=== PATIENT | male | born 1995 | race Caucasian/White ===

== ENCOUNTER 2018-06-16 13:18 | Emergency (ER) | payer SELFPAY ==
[2018-06-16 13:19] VITALS: BP 133/77; PULSE 54; RESP 16; TEMP 36.4; O2SAT 95; BMI 24.4
[2018-06-16] MEDS: 0.9% Normal Saline 1,000 ML 125 ML IV (14:37)
[2018-06-16 14:45] LABS: Absolute Lymphocyte Count 2.01 X10^3/ul (0.83-4.51); Absolute Neutrophil Count 4.1 X10^3/uL (2.0-7.7); Basophil# 0.03 X10^3/uL; Basophil% 0.4 % (0-1); Eosinophil# 0.23 X10^3/uL; Eosinophils% 3.4 % (0-5); Hemoglobin 14.2 g/dl (13.0-16.5); Lymphocyte # 2.01 X10^3/ul (4.0); Mean Corp Hgb Conc 33.8 g/gl (32-36); Mean Corpuscular Hgb 29.5 pg (27.0-32.0); Mean Corpuscular Volume 87.3 fL (80-94); Mean Platelet Vol. 9.6 fl (6.2-12.0); Monocyte% 4.5 % (0-10); Neutrophil # 4.12 X10^3/uL (2.7-7.7); Neutrophil % 61.7 % (47-70); Platelet Count 211 K/mm3 (150-450); RBC Distribution Width CV 13.2 % (11.6-14.6); RBC Distribution Width SD 42.5 fl (35.1-43.9); Red Blood Count 4.81 M/mm3 (4.6-6.2); White Blood Count 6.7 K/mm3 (4.4-11.0)
[2018-06-16 14:46] LABS: POSITIVE COUNT NO; POSITIVE DIFFERENTIAL NO; POSITIVE MORPHOLOGY NO
[2018-06-16 15:06] LABS: AST(SGOT) 16 U/L (15-37); Alanine Aminotransfer ALT/SGPT 18 U/L (16-61); Alkaline Phosphatase 71 U/L (45-117); Anion Gap 8 (5-15); BUN 13 mg/dL (7-18); BUN/Creat Ratio 12.6 RATIO (10-20); Bilirubin, Direct 0.21 mg/dL (0.00-0.30); Calcium,Total 8.7 mg/dL (8.5-10.1); Chloride 105 mmol/L (98-107); Creatinine, Serum 1.03 mg/dL (0.70-1.30); EST Glomerular Filtration Rate 95 mL/min (>60); Est Glom Filt Rate - Afr Amer 115 mL/min (>60); Estimated Creatinine Clearance 122.43 ml/min; Globulin 3.6 g/dL (2.2-4.2); Glucose 81 mg/dL (74-106); Lipase 59 U/L (73-393); Potassium 3.7 mmol/L (3.5-5.1); Protein, Total 7.6 g/dL (6.4-8.2); Sodium Level 139 mmol/L (136-145)
[2018-06-16 15:18] VITALS: RESP 16
[2018-06-16 15:27] LABS: Bacteria 0 SEEN /hpf (None Seen); Mucous, Urine 0 SEEN /hpf (<or=2+); Red Blood Cells-Urine 0 SEEN /hpf (0-5); White Blood Cells 0 SEEN /hpf (0-5)
[2018-06-16 15:37] LABS: Color, Urine Yellow (Yellow); Glucose, Dipstick Normal (Normal); Ketone-Dipstick 15 mg/dl (Negative); Leukocyte Esterase-Dipstick Negative /ul (Negative); Nitrite-Dipstick Negative (Negative); Occult Blood-Urine Negative /ul (Negative); Protein-Dipstick Negative (Negative); Specific Gravity, Urine 1.015 (1.002-1.030); Urine Bilirubin Dipstick Negative (Negative); Urine Clarity Clear (Clear); Urine Urobilinogen Normal (Normal)
[2018-06-16 15:50] LABS: Squamous Epithelial Cells - UA 0-5 SEEN /hpf (0-5)
--- NOTE | 2018-06-16 16:27 | ED.VISSUMM ---
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 yesterday he felt okay when home was able to eat and drink today came to work had a bagel for breakfast and then had intermittent abdominal pain and came down to the emergency department there is been no fever today no vomiting normal bowel bladder habits he denies any significant past medical history, no exposures to sick individual or tainted food that he indicates the pain is in the central abdominal region when it occurs Physical Examination: [] He is in no distress his vital signs are within normal limits head neck chest unremarkable abdomen soft nontender the hearing guarding organomegaly any area again he indicates when he has the pain is in the central abdomen but on examination there is no findings, upper lower extremity skin exam neurologic exam normal Test Results: [] Emergency Department Course and Treatment: [] Differential is rather extensive certainly appendicitis other GI issues are in the differential screening labs are obtained are unremarkable his white counts normal his abdominal CT shows no inflammation or abnormalities in the right lower quadrant appendix not definitively seen and significant signs of constipation otherwise unremarkable CT Explained all the above to him I explained the fact that given he has a normal white count after 2 days of intermittent pain is unremarkable CT that he has been able to eat and drink that appendicitis is very unlikely and that outpatient management is appropriate, he will stay in a bland diet follow-up his family physicians and return for change in symptoms he understands and agrees Treatment Plan: [] Disposition: [] Home stable Impression: [] Abdominal pain etiology unclear This note was generated with [employer] dictation software. It may contain incorrect words, spelling, and punctuation that were not noted in review of the chart prior to signing ED Disposition - Plan for ED Patient: Chief Complaint: Abd Pain Referrals: Care Physician,No Primary [Primary Care Provider] -
--- NOTE | 2018-06-16 16:34 | ED.DEP ---
ED Disposition - Plan for ED Patient: Chief Complaint: Abd Pain Instructions: ED Abdominal Pain Unkn Cause, ED Abdominal Pain Appendx Poss Referrals: Care Physician,No Primary [Primary Care Provider] - Ariel Mcintosh MD [STAFF PHYSICIAN] -
[2018-06-16 16:52] VITALS: BP 137/68; PULSE 57; RESP 14; O2SAT 97
== END 2018-06-16 16:54 | disposition home or self-care (01) ==
PROVIDERS: Emergency Provider Emergency Medicine
DX: R10.33 Periumbilical pain (principal)
CPT/HCPCS: 74176; 80048; 80076; 81001; 83690; 85025; 96360; 96361; 99283; J7030; A4216; J2405

== ENCOUNTER → 2018-08-07 11:12 | Outpatient (CLI) | payer OTHER, SELFPAY ==
[2018-08-07 11:19] LABS: Bacteria 0 SEEN /hpf (None Seen); Mucous, Urine 0 SEEN /hpf (<or=2+); Red Blood Cells-Urine 0 SEEN /hpf (0-5); Squamous Epithelial Cells - UA 0 SEEN /hpf (0-5); White Blood Cells 0 SEEN /hpf (0-5)
[2018-08-07 11:31] LABS: Color, Urine Yellow (Yellow); Glucose, Dipstick Normal (Normal); Ketone-Dipstick 5 mg/dl (Negative); Leukocyte Esterase-Dipstick 25 /ul (Negative); Nitrite-Dipstick Negative (Negative); Occult Blood-Urine 10 /ul (Negative); Protein-Dipstick 15 mg/dl (Negative); Urine Bilirubin Dipstick Negative (Negative); Urine Clarity Clear (Clear); Urine Urobilinogen Normal (Normal)
[2018-08-07 13:15] LABS: PSA,Total- Diagnostic 1.11 ng/mL (0.0-4.0)
[2018-08-07 16:39] LABS: Chlamydia Trachomatis by PCR Negative (Negative); Neisserai gonorrhoeae by PCR Negative (Negative); Probe Check PASS; Sample Adequacy Control PASS; Specimen Processing Control PASS
== END ==
PROVIDERS: Family Provider Internal Medicine; PCP Internal Medicine; Referring Provider Nurse Practitioner Family; Visit Provider Nurse Practitioner Family
DX: R30.0 Dysuria (principal); R10.9 Unspecified abdominal pain
CPT/HCPCS: 36415; 81001; 84153; 87491; 87591

== ENCOUNTER 2018-09-13 06:56 | Day surgery (SDC) | payer OTHER, SELFPAY ==
[2018-09-13] VITALS (7 sets, daily range): BP systolic 85–123; BP diastolic 52–76; PULSE 42–66; RESP 14–16; TEMP 36.6–37; O2SAT 94–100; BMI 24.6
--- NOTE | 2018-09-13 | GASB_PTH ---
PATIENT: HERIBERTO ROUSE LOC: EN U#:[id number] AGE/SX: 23/M ROOM: RE09/13/[address]: Dr. Da Huggins MD : 1995 BED: DIS: 09/13/2018 SPEC #: [id number] RECD: 09/13/18 10:45 STATUS: ILIR MARY #: [id number] NE: 09/13/18 00:[address]: Da Huggins DEPT: SURGICAL PATHOLOGY RECD BY: Ruben Ferraro ENTERED: 09/13/18 10:45 SP TYPE: Gastric Bx OTHR DR: Dr. Justin Mcdowell MD Tissues: A - Gastric mucous membrane B - COLON BIOPSY Procedures: Surgery Specimen Level IV HEADER OPERATION: Colonoscopy, EGD ([facility]) PRE-OP DIAGNOSIS: Diarrhea, abdomen pain, dysphagia TISSUE SUBMITTED: A - Antral biopsy for histo and H. pylori, B - Random colonic biopsy MICROSCOPIC DIAGNOSIS A. Antral biopsy: Moderate chronic active gastritis. B. Colon, random biopsy: Fragments of colonic mucosa, no pathologic diagnosis. SJ:celestine 09/16/18 COMMENT A. The results of immunohistochemistry for Helicobacter pylori will be reported separately ([id number]). MICROSCOPIC DESCRIPTION Slides are reviewed. GROSS DESCRIPTION A - Received in fixative is one container labeled with the patient's name and designated antral biopsy. The specimen consists of multiple irregular fragments of light gordon soft tissue that in aggregate measure 0.7 x 0.5 x 0.2 cm. The specimen is totally submitted in one cassette. B - Received in fixative is one container labeled with the patient's name and designated random colonic biopsies. The specimen consists of multiple irregular fragments of light gordon soft tissue that in aggregate measure 2 x 0.8 x 0.2 cm. The specimen is totally submitted in one cassette. / RY:celestine 09/13/18 TC:2 CPT: 40492 x2
--- NOTE | 2018-09-13 07:52 | H&P.OPEN ---
History of Present Illness Date of Admission: 09/13/18 The patient is a 23 year old M who was seen in the office and is here for colonoscopy due to his chronic diarrhea and cramping. The patient also has noted that recently he has been having a lot of epigastric pain as well as nausea and vomiting. Past Medical/Surgical History - Planned Operation Planned Operative Procedure/s: CSCOPE/EGD Date of Operative Procedure: 09/13/18 Permit Signed: No S.O.S: No Is This Patient Having a Total Joint: No - Previous Hospitalizations/Surgeries HX Hospitalizations: No HX of Surgeries: TONSILLECTOMY CHILD. 2015 VARCIOCELECTOMY Any Problems With Anesthesia: No You/Your Family Experience Fever (Hyperthermia) With Anes: No Cholinesterase deficiency: No - Cardiovascular Hx Chest Pain within Last 2 months: No Hx of Irregular Heartbeat and/or Afib: No Hx Heart Attack: No Hx Congestive Heart Failure: No Hx Rheumatic Fever: No Hx Hypertension: No Hx Internal Defibrillator: No Hx Pacemaker: No Hx Cardiac Catheterization: No Hx Cardiac Surgery/Stents/Etc.: No Hx Stress Test: No HX Edema: No Hx Pain in Legs when Walking/Leg Cramps: No - Respiratory Chronic Cough: No HX of Shortness of Breath: Yes - SOB WITH 2 FLIGHTS OF STAIRS Hoarseness: No Hx Chronic Obstructive Pulmonary Disease (COPD): No Hx Asthma: No Hx Emphysema: No Hx Sleep Apnea: No Hx Oxygen Use at Home: No Hx Respiratory Tract Infection/Cold (presently): No Do You Snore Loudly (louder than talking or can be heard): No Do You Often Feel Tired/ Fatigued/ Sleepy Dring Daytime?: No Has Anyone Observed You Stop Breathing During Sleep?: No Result (for STOP score): Negative Hx Smoking: Yes - CHEWING TOBACCO Smoking Status: Current every day smoker - Gastrointestinal Hx Gastroesophageal Reflux: Yes Controlled With Meds: No Hx Gastrointestinal Disorders: Yes - IBS,CONSTIPATION Hx Gastrointestinal Bleed: No Hx Ulcer: No Hx Hiatal Hernia: No Difficulty Chewing/Swallowing: Yes - TROUBLES WITH SWALLOWING Recent Onset of Swallowing Problems: No Special diet followed at home: No Hx Unplanned Weight Loss of 20#: No HX Unplanned Weight Gain of 20#: No - Neurological Hx Seizures: No HX Syncope/Blackout Spells/Unconsciousness: Yes - VASOVAGAL Hx CVA/Stroke: No Hx Transient Ischemic Attacks (TIA): No Hx Multiple Sclerosis: No Hx Parkinson's Disease: No Hx Head/Neck Injury: No Hx Headaches: Yes Hx Back Injury/Pain: Yes - SCIATIC NERVE PAIN Recent Onset of Speech Difficulty: No Restless Legs: No Does patient have nerve stimulator: No Patient instructed to have device shut off: No Rep notified?: No - Blood Disorder Hx Leukemia: No Bleeding Tendencies: Yes - EXCESSIVE BLEEDING Hx Deep Vein Thrombosis: No Hx High Cholesterol: No Blood Transmitted Disease: No Hx Hepatitis: No Hx Cirrhosis: No Hx Anemia: No Hx Blood Disorders: No - Genitourinary Hx Renal Disease: No - Musculoskeletal Hx Arthritis: No Hx Rheumatoid Arthritis: No Hx Gout: No Recent Onset of an Orthopedic Problem: No - Endocrine Hx Diabetes: No Thyroid Disease: No Hx Steroid Therapy: No - Psycho/Social Hx Substance Use: No Hx Alcohol Use: Yes - IN THE PAST Hx Anxiety: Yes Hx Depression: No Mental Illness: No Hx Dementia: No - Miscellaneous Hx Cancer: No Recent Exposure to Contagious Disease: No Active MRSA: No Hx of C-Diff: No Any Loose Teeth: No Allergies No Known Allergies Allergy (Verified 09/12/18 15:59) - Discharge Is Pt Admitted From a Senior Care, or a Prison: No Who Could Help: FAMILY After D/C, Where Do you Plan to Go: Return Home - Physical Exam General: Alert, Oriented x3, Cooperative Neck: No JVD Lungs: Normal air movement Cardiovascular: Regular rate, Regular Rhythm Abdomen: Soft, Non Tender, Non-Distended Vital Signs Temp Pulse Resp BP Pulse Ox 98.6 F 53 L 14 123/76 H 97 09/13/18 07:13 09/13/18 07:13 09/13/18 07:13 09/13/18 07:13 09/13/18 07:13 Oxygen Delivery Method Room Air Weight: 181 lb 10.574 oz Body Mass Index (BMI) 24.6 Assessment/Plan All Active Problems (Last Reviewed 08/06/18 @ 15:50 by Akilah Zhou) Abdominal pain (Acute) 23-year-old male for EGD and colonoscopy 1. Given the fact that the patient is having a lot of epigastric pain as well as nausea especially with meals I will add on an EGD as well. 2. I have already expressed the fact that I am doing his colonoscopy but I recommend that he see a GI doctor as his symptoms do not indicate anything surgical. Da Huggins MD Pager: [facility] [address] [place] [address] [address] [place] [address] Office: Surgery Risks - Colonoscopy Risks Include but are not Limited To: Risks include but are not limited to: Bleeding, perforation requiring further surgery, inability to complete colonoscopy requiring barium enema.
--- NOTE | 2018-09-13 08:00 | IMM_PTH ---
PATIENT: HERIBERTO ROUSE LOC: EN U#:[id number] AGE/SX: 23/M ROOM: RE09/13/[address]: Dr. Da Huggins MD : 1995 BED: DIS: 09/13/2018 SPEC #: [id number] RECD: 09/13/18 13:26 STATUS: ILIR MARY #: [id number] NE: 09/13/18 08:[address]: Da Huggins DEPT: IMMUNOHISTOCHEMISTRY RECD BY: Julissa López ENTERED: 09/13/18 13:26 SP TYPE: IMMUNO OTHR DR: Dr. Justin Mcdowell MD Tissues: A - Stomach, NOS Procedures: H Pylori (initial) PHYSICIAN & INSTITUTION [place] [address] SPECIMEN INFORMATION: Tissue Source: A - Antral biopsy Clinical Info: Diarrhea, abdomen pain, dysphagia Specimen Number: [id number] CPT code: 93160 METHODOLOGY: Deparaffinized sections of prefer/formalin-fixed tissue or PAP/DQ stained slides are incubated with monoclonal/polyclonal antibodies/oligonucleotide probes. Localization is made via biotin free immunoperoxidase method. Appropriate controls are performed and reacted as expected. Results on target cell population are indicated in the following table: RESULTS: ANTIBODY / CLONE RESULT Block A H Pylori (polyclonal) positive These tests were developed and their performance characteristics determined by [facility]. They may not have been cleared or approved by the U.S. Food and Drug Administration. The FDA has determined that such clearance or approval is not necessary. INTERPRETATION: A. Antral biopsy: Positive for numerous Helicobacter pylori organisms. SJ:celestine 09/16/18
--- NOTE | 2018-09-13 08:26 | OP.ENDO_ITS ---
Patient Name: Eliot Rivers Procedure Date: 09/13/2018 7:34 AM Date of : 1995 Age: 23 Procedure: Upper GI endoscopy Indications: Epigastric abdominal pain, Suspected gastro-esophageal reflux disease Providers: Da Huggins MD Referring MD: Justin Mcdowell MD Medicines: Monitored Anesthesia Care Patient Profile: This is a 23 year old male. Refer to note in patient chart for documentation of history and physical. Complications: No immediate complications. Estimated blood loss: Minimal. Procedure: Pre-Anesthesia Assessment: - Prior to the procedure, a History and Physical was performed, and patient medications and allergies were reviewed. The patient's tolerance of previous anesthesia was also reviewed. The risks and benefits of the procedure and the sedation options and risks were discussed with the patient. All questions were answered, and informed consent was obtained. Prior Anticoagulants: The patient has taken no previous anticoagulant or antiplatelet agents. After reviewing the risks and benefits, the patient was deemed in satisfactory condition to undergo the procedure. After obtaining informed consent, the endoscope was passed under direct vision. Throughout the procedure, the patient's blood pressure, pulse, and oxygen saturations were monitored continuously. The gastroscope was introduced through the mouth, and advanced to the second part of duodenum. The upper GI endoscopy was accomplished without difficulty. The patient tolerated the procedure well. Scope In: 8:00:10 AM Scope Out: 8:02:40 AM Total Procedure Duration Time 0 hours 2 minutes 30 seconds Findings: The esophagus was normal. The stomach was normal. The examined duodenum was normal. Biopsies were taken with a cold forceps in the gastric antrum for Helicobacter pylori testing. Impression: - Normal esophagus. - Normal stomach. - Normal examined duodenum. - Biopsies were taken with a cold forceps for Helicobacter pylori testing. Recommendation: - Await pathology results. - Resume previous diet. - Continue present medications. - Refer to a examiner rating clerk. - Discharge patient to home. Procedure Code(s): --- Professional --- 92369, Esophagogastroduodenoscopy, flexible, transoral; with biopsy, single or multiple Diagnosis Code(s): --- Professional --- R10.13, Epigastric pain CPT copyright 2017 [employer]. All rights reserved. The codes documented in this report are preliminary and upon regional marketing manager review may be revised to meet current compliance requirements. Da Huggins MD 09/13/2018 8:25:14 AM This report has been signed electronically. Number of Addenda: 0 Note Initiated On: 09/13/2018 7:34 AM
--- NOTE | 2018-09-13 08:27 | OP.ENDO_ITS ---
Patient Name: Eliot Rivers Procedure Date: 09/13/2018 8:04 AM Date of : 1995 Age: 23 Procedure: Colonoscopy Indications: Abdominal pain in the left lower quadrant, Clinically significant diarrhea of unexplained origin Providers: Da Huggins MD Referring MD: Justin Mcdowell MD Medicines: Monitored Anesthesia Care Patient Profile: This is a 23 year old male. Refer to note in patient chart for documentation of history and physical. Last Colonoscopy: none. The patient's first colonoscopy is today. Complications: No immediate complications. Estimated blood loss: Minimal. Procedure: Pre-Anesthesia Assessment: - Prior to the procedure, a History and Physical was performed, and patient medications and allergies were reviewed. The patient's tolerance of previous anesthesia was also reviewed. The risks and benefits of the procedure and the sedation options and risks were discussed with the patient. All questions were answered, and informed consent was obtained. Prior Anticoagulants: The patient has taken no previous anticoagulant or antiplatelet agents. After reviewing the risks and benefits, the patient was deemed in satisfactory condition to undergo the procedure. After I obtained informed consent, the scope was passed under direct vision. Throughout the procedure, the patient's blood pressure, pulse, and oxygen saturations were monitored continuously. The Colonoscope was introduced through the anus and advanced to the cecum, identified by appendiceal orifice and ileocecal valve. The colonoscopy was performed without difficulty. The patient tolerated the procedure well. The quality of the bowel preparation was good. Scope In: 8:05:57 AM Scope Withdrawal Time 0 hours 6 minutes 34 seconds Scope Out: 8:17:23 AM Total Procedure Duration Time 0 hours 11 minutes 26 seconds Findings: The entire examined colon appeared normal on direct and retroflexion views. Biopsies for histology were taken with a cold forceps from the entire colon for evaluation of microscopic colitis. Impression: - The entire examined colon is normal on direct and retroflexion views. - No specimens collected. Recommendation: - Discharge patient to home. - Resume previous diet. - Continue present medications. - Physician's office will call you with pathology results and recommendations for when to repeat colonoscopy. - Refer to a environment coordinator. - Repeat colonoscopy at age 50 for screening purposes. Procedure Code(s): --- Professional --- 05255, Colonoscopy, flexible; with biopsy, single or multiple Diagnosis Code(s): --- Professional --- R10.32, Left lower quadrant pain R19.7, Diarrhea, unspecified CPT copyright 2017 [employer]. All rights reserved. The codes documented in this report are preliminary and upon service architect review may be revised to meet current compliance requirements. Da Huggins MD 09/13/2018 8:27:41 AM This report has been signed electronically. Number of Addenda: 0 Note Initiated On: 09/13/2018 8:04 AM
== END 2018-09-13 09:15 | disposition home or self-care (01) ==
LOC: EN 06:57 → AC 06:58
PROVIDERS: Family Provider Internal Medicine; PCP Internal Medicine; Referring Provider Internal Medicine; Visit Provider Surgery
PROC: 0DJD8ZZ Inspection of Lower Intestinal Tract, Via Natural or Artificial Opening Endoscopic (ICD-10-PCS; CPT 45378; principal; 2018-09-13 07:55)
DX: K29.50 Unspecified chronic gastritis without bleeding (principal); B96.81 Helicobacter pylori [H. pylori] as the cause of diseases classified elsewhere; K58.0 Irritable bowel syndrome with diarrhea; K21.9 Gastro-esophageal reflux disease without esophagitis; F17.200 Nicotine dependence, unspecified, uncomplicated; Z79.899 Other long term (current) drug therapy
CPT/HCPCS: 43239; 45380; 88305; 88342; J7120

== ENCOUNTER 2018-10-14 18:11 | Emergency (ER) | payer OTHER, SELFPAY ==
[2018-09-13 07:13] VITALS: BMI 24.6
[2018-10-14 18:14] VITALS: BP 127/73; PULSE 104; RESP 14; TEMP 36.9; O2SAT 99; BMI 24.8
[2018-10-14 20:32] LABS: Anion Gap 7 (5-15); BUN 11 mg/dL (7-18); BUN/Creat Ratio 11.7 RATIO (10-20); Calcium,Total 9.1 mg/dL (8.5-10.1); Chloride 106 mmol/L (98-107); Creatinine, Serum 0.94 mg/dL (0.70-1.30); EST Glomerular Filtration Rate 105 mL/min (>60); Est Glom Filt Rate - Afr Amer 127 mL/min (>60); Estimated Creatinine Clearance 130.17 ml/min; Glucose 75 mg/dL (74-106); Sodium Level 142 mmol/L (136-145)
--- NOTE | 2018-10-14 20:36 | CT_ITS ---
STUDY: CT ABDOMEN AND PELVIS WITH CONTRAST REASON FOR EXAM: Male, 23 years old. GI bleed RADIATION DOSAGE (If Supplied By Facility): CTDIvol = ( 11.82 ) mGy, DLP = ( 699.50 ) mGycm TECHNIQUE: Transaxial images were obtained from the dome of the diaphragm to the symphysis pubis without oral contrast. 100 ml of Isovue 300 contrast was administered. Sagittal and coronal images were reconstructed. Individualized dose optimization techniques were used for this CT. COMPARISON: June 16, 2018 FINDINGS: The visualized lung bases are unremarkable. The visualized portions of the heart are within normal limits. Normal liver. Normal gallbladder and extrahepatic biliary system. Normal spleen. Normal pancreas. Normal bilateral adrenal glands. Normal right kidney. Possible punctate stone in the left kidney. Normal visualized stomach. Normal small intestine. Normal colon. The appendix is visualized and appears normal. Normal abdominal aorta. Normal inferior vena cava. Normal retroperitoneum. Normal urinary bladder. Normal abdominal wall. Normal osseous structures. CT/Abdomen/Pelvis W IV Cont ONLY IMPRESSION: Possible punctate nonobstructive left renal stone. Electronically Signed: Ziggy Awad DO at 21:41 EST Tel [phone], Service support ,
[2018-10-14 20:40] LABS: Absolute Lymphocyte Count 1.76 X10^3/ul (0.83-4.51); Absolute Neutrophil Count 4.3 X10^3/uL (2.0-7.7); Basophil# 0.05 X10^3/uL; Basophil% 0.7 % (0-1); Eosinophil# 0.22 X10^3/uL; Eosinophils% 3.2 % (0-5); Hematocrit 45.2 % (40-54); Hemoglobin 15.7 g/dl (13.0-16.5); Lymphocyte # 1.76 X10^3/ul (4.0); Lymphocyte % 25.7 % (19-41); Mean Corp Hgb Conc 34.7 g/gl (32-36); Mean Corpuscular Hgb 29.8 pg (27.0-32.0); Mean Corpuscular Volume 85.8 fL (80-94); Mean Platelet Vol. 10.1 fl (6.2-12.0); Monocyte# 0.47 X10^3/uL; Monocyte% 6.9 % (0-10); Neutrophil # 4.33 X10^3/uL (2.7-7.7); Neutrophil % 63.4 % (47-70); Platelet Count 247 K/mm3 (150-450); RBC Distribution Width CV 13.1 % (11.6-14.6); Red Blood Count 5.27 M/mm3 (4.6-6.2); White Blood Count 6.8 K/mm3 (4.4-11.0)
[2018-10-14 20:42] LABS: POSITIVE COUNT NO; POSITIVE DIFFERENTIAL NO; POSITIVE MORPHOLOGY NO
[2018-10-14 21:14] VITALS: BP 130/67; PULSE 64; RESP 17; O2SAT 96
[2018-10-14 22:11] LABS: Bacteria 0 SEEN /hpf (None Seen); Mucous, Urine 0 SEEN /hpf (<or=2+); Red Blood Cells-Urine 0 SEEN /hpf (0-5); Squamous Epithelial Cells - UA 0 SEEN /hpf (0-5); White Blood Cells 0 SEEN /hpf (0-5)
[2018-10-14 22:36] LABS: Color, Urine Straw (Yellow); Glucose, Dipstick Normal (Normal); Ketone-Dipstick Negative (Negative); Leukocyte Esterase-Dipstick Negative /ul (Negative); Nitrite-Dipstick Negative (Negative); Occult Blood-Urine Negative /ul (Negative); Protein-Dipstick Negative (Negative); Urine Bilirubin Dipstick Negative (Negative); Urine Clarity Clear (Clear); Urine Urobilinogen Normal (Normal); Urine pH 6.5 (5.0 - 8.0)
--- NOTE | 2018-10-14 22:39 | ED.VISSUMM ---
- ER Visit Summary Date of Service: 10/14/18 Chief Complaint: Diarrhea History of Present Illness: The patient is a 23 M who states that he was recently treated with H. pylori. He was experiencing abdominal pain that got better while he was having the treatment. Treatment ended 7 days ago. 3 days ago he began to have abdominal pain nausea decreased p.o. lightheadedness now he notes diarrhea and occasionally is having blood in the stool. He notes mucousy stools. Colonoscopy was [address] Boss. At that time he also had an EGD. Physical Examination: Afebrile vital signs stable Gen: Well-nourished well-developed Head: Normocephalic atraumatic Eyes: Perrl EOMI ENT: TMs clear no rhinorrhea moist mucous membranes Neck: Supple no lymphadenopathy no JVD nontender CVS: Regular rate rhythm no murmurs normal S1-S2 Respiratory: No distress clear to auscultation bilaterally chest nontender Abdomen: Soft mild left sided abdominal pain without rebound nondistended normal bowel sounds no masses Back: Nontender Extremity: Nontender no edema Skin: Normal color no rash Neuro: alert orientated ?3 CN II-XII intact normal strength sensation reflexes gait cerebellar Psych: Normal affect normal mood Test Results: Patient did give a stool specimen that did look like mucus with the occasional red spot of blood in it. Is positive for fecal leukocytes. Will be sent for C. difficile and enteric pathogens. CBC chemistries urine were normal. CT the abdomen pelvis does not show any obvious colitis or inflammatory conditions. Emergency Department Course and Treatment: We will write for the patient have Cipro and Flagyl. He has upcoming appointments with gastroenterology. We will await the stool cultures. Have early follow-up with his doctors Impression: 1. Abdominal pain 2. Diarrhea This note was generated with [employer] dictation software. It may contain incorrect words, spelling, and punctuation that were not noted in review of the chart prior to signing ED Disposition - Plan for ED Patient: Disposition: Home or Assisted Living Chief Complaint: GI Bleed Instructions: ED Gastroenteritis Report Pend Prescriptions: Metronidazole [Flagyl] 500 mg PO Q8H #21 tab Ciprofloxacin [Cipro] 500 mg PO BID #14 tab Referrals: Justin Mcdowell MD [Primary Care Provider] - As soon as possible
[2018-10-14] MEDS: metroNIDAZOLE 500 MG Tablet PO (22:43)
[2018-10-14] MEDS: Ciprofloxacin 500 MG Tablet PO (22:43)
[2018-10-14 22:44] VITALS: BP 129/90; PULSE 74; RESP 16; O2SAT 94
== END 2018-10-14 23:00 | disposition home or self-care (01) ==
PROVIDERS: Emergency Provider Emergency Medicine; Family Provider Internal Medicine; PCP Internal Medicine
DX: R10.9 Unspecified abdominal pain (principal); R19.7 Diarrhea, unspecified; Z86.19 Personal history of other infectious and parasitic diseases
CPT/HCPCS: 74177; 80048; 81001; 83630; 85025; 87493; 87506; 99285; Q9967; A4216

== ENCOUNTER → 2019-10-15 12:56 | Outpatient (CLI) | payer OTHER, SELFPAY ==
[2019-09-29 14:47] VITALS: BMI 24.8
[2019-10-16 10:59] LABS: H. Pylori Antibody (IgG) 0.52 (0.00-0.79)
== END ==
PROVIDERS: Family Provider Internal Medicine; PCP Internal Medicine; Referring Provider Internal Medicine; Visit Provider Internal Medicine
DX: K25.9 Gastric ulcer, unspecified as acute or chronic, without hemorrhage or perforation (principal); B96.81 Helicobacter pylori [H. pylori] as the cause of diseases classified elsewhere
CPT/HCPCS: 36415; 86677

== ENCOUNTER 2019-10-18 12:33 | Emergency (ER) | payer OTHER, SELFPAY ==
[2019-09-29 14:47] VITALS: BMI 24.8
[2019-10-18 12:35] VITALS: BP 142/87; PULSE 75; RESP 14; TEMP 37.2; O2SAT 98; BMI 23.1
--- NOTE | 2019-10-18 12:46 | EKG12_ITS ---
Test Reason : ANEMIC Blood Pressure : / mmHG Vent. Rate : 063 BPM Atrial Rate : 063 BPM P-R Int : 164 ms QRS Dur : 076 ms QT Int : 372 ms P-R-T Axes : 064 072 065 degrees QTc Int : 380 ms Sinus rhythm with sinus arrhythmia with occasional Premature ventricular complexes Otherwise normal ECG Confirmed by KIMBERLY FELDMAN, MISTY ([id number]), newspaper editor AMADA CLAROS ([id number]) on 10/20/2019 10:02:19 AM Referred By: IDANIA Confirmed By:MISTY HARRIS MD
--- NOTE | 2019-10-18 12:47 | ED.VISSUMM ---
- ER Visit Summary Date of Service: 10/18/19 Chief Complaint: Dizziness, shortness of breath, nausea History of Present Illness: The patient is a 24 M who presents with the above symptoms. He has had it for 1 week. He has a bunch of nonspecific symptoms including his dizziness, nausea and short of breath. He feels like foam is stuck in his throat. He was near syncopal at work. He did vomit earlier this week but none recently. He just finished treatment for H. pylori. He states that his ulcer pain is improved. He has no other health problems. Physical Examination: Vital signs reviewed. HEENT exam unremarkable. Heart is regular rate and rhythm without murmurs. Lungs are clear to auscultation. Abdomen is soft and nontender. Extremities reveal no edema. Skin exam normal. Neurologic exam normal. Test Results: Normal sinus rhythm EKG. Labs normal Emergency Department Course and Treatment: Patient was given fluids and Zofran. He feels better. I have no acute causes for his symptoms. I will give him Zofran ODT at home to take as needed for nausea. He needs to follow-up with his doctor as he had mentioned that she would like to refer him for an EGD and colonoscopy which I feel is reasonable. Treatment Plan: [] Disposition: Discharge Impression: near Syncope, nausea This note was generated with [employer] dictation software. It may contain incorrect words, spelling, and punctuation that were not noted in review of the chart prior to signing ED Disposition - Plan for ED Patient: Instructions: NEAR SYNCOPE, Unknown Prescriptions: Ondansetron [Zofran Odt] 4 mg PO Q8H PRN PRN #10 tab PRN Reason: Nausea Transmission Status: Pending to [facility] Referrals: Justin Mcdowell MD [Primary Care Provider] - Additional Instructions: Your prescriptions were electronically transferred to [facility]
[2019-10-18] MEDS: 0.9% Normal Saline 1,000 ML 999 ML IV (12:48)
[2019-10-18] MEDS: Ondansetron 4 MG/2 ML Vial IV (12:52)
[2019-10-18 13:04] LABS: Absolute Lymphocyte Count 2.02 X10^3/uL (0.83-4.51); Absolute Neutrophil Count 3.3 X10^3/uL (2.0-7.7); Basophil# 0.05 X10^3/uL; Basophil% 0.8 % (0-1); Eosinophil# 0.21 X10^3/uL; Eosinophils% 3.5 % (0-5); Hematocrit 42.6 % (40-54); Hemoglobin 14.3 g/dL (13.0-16.5); Lymphocyte # 2.02 X10^3/ul (4.0); Lymphocyte % 33.7 % (19-41); Mean Corp Hgb Conc 33.6 g/dL (32-36); Mean Corpuscular Hgb 29.7 pg (27.0-32.0); Mean Corpuscular Volume 88.6 fL (80-94); Mean Platelet Vol. 9.6 fl (6.2-12.0); Monocyte# 0.37 X10^3/uL; Monocyte% 6.2 % (0-10); NRBC Flagged by Analyzer 0 % (0-5); Neutrophil # 3.31 X10^3/uL (2.7-7.7); Neutrophil % 55.3 % (47-70); Platelet Count 222 K/mm3 (150-450); RBC Distribution Width CV 12.9 % (11.6-14.6); Red Blood Count 4.81 M/mm3 (4.6-6.2)
[2019-10-18 13:12] LABS: ALB/GLOB Ratio 1.2 RATIO (0.9-2.4); AST(SGOT) 18 U/L (15-37); Alanine Aminotransfer ALT/SGPT 25 U/L (16-61); Albumin, Serum 4.2 g/dL (3.2-5.0); Alkaline Phosphatase 75 U/L (45-117); Anion Gap 6 (5-15); BUN 15 mg/dL (7-18); Calcium,Total 8.9 mg/dL (8.5-10.1); Chloride 105 mmol/L (98-107); Creatinine, Serum 0.94 mg/dL (0.70-1.30); EST Glomerular Filtration Rate 105 mL/min (>60); Est Glom Filt Rate - Afr Amer 126 mL/min (>60); Estimated Creatinine Clearance 129.06 ml/min; Globulin 3.4 g/dL (2.2-4.2); Glucose 88 mg/dL (74-106); Lipase 63 U/L (73-393); Potassium 4.2 mmol/L (3.5-5.1); Protein, Total 7.6 g/dL (6.4-8.2); Sodium Level 140 mmol/L (136-145)
[2019-10-18 13:40] VITALS: BP 131/85; PULSE 60; RESP 17; O2SAT 97
== END 2019-10-18 13:41 | disposition home or self-care (01) ==
LOC: ED 12:54
PROVIDERS: Emergency Provider Emergency Medicine; Family Provider Internal Medicine; PCP Internal Medicine
DX: R55 Syncope and collapse (principal); R11.0 Nausea; F41.9 Anxiety disorder, unspecified; Z72.0 Tobacco use; Z79.899 Other long term (current) drug therapy
CPT/HCPCS: 80053; 83690; 85025; 93005; 96361; 96374; 99283; J7030; J2405

== ENCOUNTER → 2019-10-21 08:40 | Outpatient (CLI) | payer OTHER, SELFPAY ==
[2019-10-21 08:09] VITALS: BMI 23.3
[2019-10-21 12:41] LABS: Vitamin B12 498 pg/mL (211-911)
== END ==
PROVIDERS: Family Provider Internal Medicine; PCP Internal Medicine; Visit Provider Nurse Practitioner Family
DX: E53.8 Deficiency of other specified B group vitamins (principal)
CPT/HCPCS: 36415; 82607

== ENCOUNTER 2019-11-07 12:30 | Emergency (ER) | payer OTHER, SELFPAY ==
[2019-10-21 08:09] VITALS: BMI 23.3
[2019-11-07 12:34] VITALS: BP 133/83; PULSE 70; RESP 18; TEMP 36.4; O2SAT 99; BMI 22.4
[2019-11-07 12:45] VITALS: O2SAT 98
--- NOTE | 2019-11-07 12:45 | EKG12_ITS ---
Test Reason : SOB Blood Pressure : / mmHG Vent. Rate : 061 BPM Atrial Rate : 061 BPM P-R Int : 164 ms QRS Dur : 086 ms QT Int : 348 ms P-R-T Axes : 054 070 068 degrees QTc Int : 350 ms Normal sinus rhythm Normal ECG Confirmed by KIMBERLY FELDMAN, MISTY ([id number]), editor in chief newspaper DRISS GEE ([id number]) on 11/10/2019 3:24:44 PM Referred By: CATHLEEN Confirmed By:MISTY HARRIS MD
--- NOTE | 2019-11-07 12:46 | ED.DCSUM_ITS ---
- ER Visit Summary Date of Service: 11/07/19 Chief Complaint: Subjective dyspnea History of Present Illness: The patient is a 24 M with anxiety and prior reflux and H. pylori. Patient states for 1 to 2 months he has had intermittent chest discomfort and intermittent shortness of breath. He was seen in emergency department after negative work-up at that time. He followed up with his primary care physician and they did not think he needed any further evaluation. He was concerned he did not change physicians. He went to a physician to [facility] and they put him on a Holter monitor. Holter monitor showed intermittent sinus arrhythmia and PVCs but nothing else. Today whenever talked him up over the phone they thought he sounded short of breath so the same the emergency department. Currently is not having chest pain. He is never had a DVT or PE. He has had no recent travel, immobilization, hospitalization or surgery. He has no leg pain or swelling. No hemoptysis. No fever. There is no family history of clotting disorders or cardiac disease at a young age. Physical Examination: Young male no acute distress vital signs are stable afebrile. Pulse ox 90% on room air no signs hypoxia. Initial blood pressure 133/83. He is anxious he does have anxiety he tells me. But he does not think this is secondary to anxiety. H EENT exam unremarkable. Neck nontender no JVD. No lymphadenopathy. Lungs clear to auscultation bilaterally. Heart regular rhythm rate about 60 no murmur. Abdomen soft nontender normal bowel sounds no peritoneal signs. Chest wall nontender. Patient is moving all 4 extremities and neurovascular intact. Normal plate washer strength and sensation. Normal range of motion. Equal symmetrical radial pulses. Calves are nontender without edema or cords. Back nontender. Skin no rashes. Multiple tattoos. Neurologically is awake and alert with no focal motor deficits. Test Results: KG shows a sinus rhythm rate of 61 with no acute signs of DE or ischemia. No dysrhythmia. CBC white count of 5. Hemoglobin 13.9. Chemistries unremarkable normal creatinine and gap. Troponin normal. Chest x-ray 2 views read by myself and radiologist shows no acute abnormality. Normal cardiac silhouette. Normal mediastinum. No edema. No effusions. No infiltrate. Emergency Department Course and Treatment: Patient has a normal exam. He will undergo a work-up but I clinically do not expect any significant abnormalities on his work-up. Repeat exam at 1405 p.m. patient doing well. He and I went over all his test results. Clinically I do not think this is pathologic cardiac or respiratory disease. Am comfortable him being discharged home with outpatient follow-up. Treatment Plan: Follow-up with primary care physician. Disposition: Discharge Impression: Acute subjective dyspnea of uncertain etiology Anxiety This note was generated with [employer] dictation software. It may contain incorrect words, spelling, and punctuation that were not noted in review of the chart prior to signing ED Disposition - Plan for ED Patient: Referrals: [facility] Doctor,Out of [NON-STAFF] -
[2019-11-07 12:53] VITALS: O2SAT 98
--- NOTE | 2019-11-07 12:55 | RAD_ITS ---
STUDY: X-RAY CHEST REASON FOR EXAM: Male, 24 years old. SOB AND LEFT SIDED CHEST PAINS. HAS HAPPENED BEFORE. TECHNIQUE: PA and lateral views of the chest. COMPARISON: None. FINDINGS: EKG electrodes are seen. The lungs are clear and expanded. Scattered calcified granulomas. There is no demonstrated pleural abnormality. Normal size heart. Normal mediastinum and bri. Normal visualized pulmonary arteries. Normal visualized aortic arch and descending thoracic aorta. Normal visualized thoracic spine. Normal visualized ribs, clavicles, and shoulders. There is no demonstrated abnormality of the visualized soft tissue structures of the upper abdomen. RAD/Chest PA and Lateral IMPRESSION: Normal x-ray examination of the chest. Electronically Signed: Vargas Riojas, at 13:20 EST , Service support ,
[2019-11-07 13:00] LABS: Absolute Lymphocyte Count 1.96 X10^3/uL (0.83-4.51); Absolute Neutrophil Count 2.5 X10^3/uL (2.0-7.7); Basophil# 0.05 X10^3/uL; Eosinophil# 0.18 X10^3/uL; Eosinophils% 3.6 % (0-5); Hematocrit 40.5 % (40-54); Hemoglobin 13.9 g/dL (13.0-16.5); Lymphocyte # 1.96 X10^3/ul (4.0); Lymphocyte % 39.5 % (19-41); Mean Corp Hgb Conc 34.3 g/dL (32-36); Mean Corpuscular Hgb 29.8 pg (27.0-32.0); Mean Corpuscular Volume 86.9 fL (80-94); Mean Platelet Vol. 9.2 fl (6.2-12.0); Monocyte# 0.26 X10^3/uL; Monocyte% 5.2 % (0-10); NRBC Flagged by Analyzer 0 % (0-5); Neutrophil % 50.5 % (47-70); Platelet Count 186 K/mm3 (150-450); RBC Distribution Width CV 12.4 % (11.6-14.6); RBC Distribution Width SD 39.5 fl (35.1-43.9); Red Blood Count 4.66 M/mm3 (4.6-6.2)
[2019-11-07 13:21] LABS: BUN 14 mg/dL (7-18); Creatinine, Serum 0.91 mg/dL (0.70-1.30); Estimated Creatinine Clearance 132.51 ml/min; Glucose 101 mg/dL (74-106)
[2019-11-07 13:22] LABS: Anion Gap 3 (5-15); BUN/Creat Ratio 15.4 RATIO (10-20); Chloride 108 mmol/L (98-107); EST Glomerular Filtration Rate 108 mL/min (>60); Est Glom Filt Rate - Afr Amer 131 mL/min (>60); Potassium 3.9 mmol/L (3.5-5.1); Sodium Level 139 mmol/L (136-145)
--- NOTE | 2019-11-07 14:07 | ED.DEP ---
ED Disposition - Plan for ED Patient: Disposition: Home or Assisted Living Instructions: ED Dyspnea Referrals: [facility],Out of [NON-STAFF] - As Needed Additional Instructions: All your test results today were normal including EKG, chest x-ray, blood counts, electrolytes and heart enzymes. There is no specific cause for your shortness of breath it may be related to your anxiety. Follow-up with your doctor's office as needed.
[2019-11-07 14:38] VITALS: BP 113/79; PULSE 64; RESP 16; O2SAT 98
== END 2019-11-07 14:39 | disposition home or self-care (01) ==
PROVIDERS: Emergency Provider Emergency Medicine
DX: F41.9 Anxiety disorder, unspecified (principal); R06.00 Dyspnea, unspecified; K21.9 Gastro-esophageal reflux disease without esophagitis; Z72.0 Tobacco use; Z79.899 Other long term (current) drug therapy
CPT/HCPCS: 71046; 80048; 84484; 85025; 93005; 99285; A4216

== ENCOUNTER 2019-11-28 18:06 | Emergency (ER) | payer OTHER, SELFPAY ==
[2019-11-28 18:07] VITALS: BP 151/85; PULSE 87; RESP 16; TEMP 36.6; O2SAT 100; BMI 22.4
--- NOTE | 2019-11-28 18:57 | ED.DCSUM_ITS ---
- ER Visit Summary Date of Service: 11/28/19 Chief Complaint: Headache History of Present Illness: The patient is a [address] Hicks. He reports that he has pressure in the frontal area and behind both ears that began 3 days ago. Is 6 out of 10 at worst and 3-10 currently. Is worsened by nothing. Is relieved by nothing. However, has not taken anything for this. Patient reports that 2:00 this afternoon while he was eating he had the abrupt onset of difficulty breathing. He states that he was unable to breathe in or out. He reports that this lasted approximately 1 minute and then has resolved. He does report he had a cough for the past 2 days. However, he has not ever had anything like this before. He denies any fever, chills, sore throat, or other complaints. Physical Examination: Vitals: Stable. Afebrile. General: Well-nourished and well-developed. Head: Normocephalic atraumatic. Neck: Supple, no lymphadenopathy. No JVD. Nontender. Cardiovascular: Regular rate and rhythm. No murmurs. Respiratory: No respiratory distress. Clear to auscultation bilaterally. Abdominal: Soft, nontender, nondistended, normal bowel sounds. No guarding, rebound, or peritoneal signs. Back: Nontender. Extremities: Nontender, no edema. Skin: Normal color, no rash. Neurologic: Alert and oriented ?3. Cranial nerves II through XII are intact. Normal strength and sensation. Psych: Normal affect. Emergency Department Course and Treatment: Patient's resting comfortably. He refused Tylenol or ibuprofen for pain. Treatment Plan: I had a prolonged discussion with patient that the episode of difficulty breathing while he was eating lunch sounds as though he had laryngeal spasm. He is already on omeprazole. He is instructed to put his head of his bed on 4 inch blocks. Avoid eating prior to bedtime as I suspect he does have irritation of his vocal cords. He is already on Zyrtec. Is instructed to continue this. We also discussed the fact that antibiotics are not indicated for his sinus pressure. He does report he has a history of anxiety. I do not think that Sudafed is in his best interest either. He is instructed to continue his Zyrtec. Use Benadryl at night. Follow-up his primary care physician in 3 to 5 days if not improving. Return to the emergency department for any worsening symptoms. Disposition: To home in improved and stable condition. Impression: 1. Cephalgia. This note was generated with [employer] dictation software. It may contain incorrect words, spelling, and punctuation that were not noted in review of the chart prior to signing ED Disposition - Plan for ED Patient: Disposition: Home or Assisted Living Instructions: Sinus Headache Prescriptions: Albuterol Inhaler [Ventolin Hfa] 2 puff INHALATION Q4H PRN PRN #1 inhaler PRN Reason: Wheezing Transmission Status: Received by JASMIN [id number] [facility] Referrals: EZRA HICKS [Other] - 3-5 Days
[2019-11-28 19:03] VITALS: RESP 18
== END 2019-11-28 19:04 | disposition home or self-care (01) ==
LOC: ED 18:51
PROVIDERS: Emergency Provider Emergency Medicine
DX: R51 Headache (principal); K21.9 Gastro-esophageal reflux disease without esophagitis; Z79.899 Other long term (current) drug therapy
CPT/HCPCS: 99283

== ENCOUNTER 2020-01-26 14:19 | Emergency (ER) | payer OTHER, SELFPAY ==
[2020-01-26 14:20] VITALS: BP 139/75; PULSE 71; RESP 17; TEMP 36.8; O2SAT 100; BMI 25.0
--- NOTE | 2020-01-26 14:37 | CT_ITS ---
STUDY: CT BRAIN WITHOUT CONTRAST REASON FOR EXAM: Male, 24 years old. HEADACHES,DIZZY,FATIGUE,WEAKNESS,NAUSEA,JOINT PAIN DAILY SINCE SEPTEMBER RADIATION DOSAGE (If Supplied By Facility): CTDIvol = ( 44.99 ) mGy, DLP = ( 779.24 ) mGycm TECHNIQUE: Transaxial CT imaging of the brain was performed without administration of intravenous contrast material. Individualized dose optimization techniques were used for this CT. COMPARISON: No relevant priors. FINDINGS: Normal soft tissue structures. Normal calvarium. Normal size ventricles and extra-axial spaces for the patient''s age. Normal white matter tracts of the cerebral hemispheres. Normal basal ganglia and thalami. Normal brainstem. Normal cerebellum. There is no intracranial hemorrhage. There are no findings of an acute ischemic infarction. Normal visualized paranasal sinuses. CT/Brain/Head without Contrast IMPRESSION: Normal unenhanced CT scan of the brain. Electronically Signed: Vargas Riojas, at 15:50 EDT , Service support ,
--- NOTE | 2020-01-26 14:40 | ED.VIS.GEN ---
History of Present Illness Chief Complaint: Headache Informant: Patient Narrative: Presents with a headache for the past 4 months, he has it most mornings, today was somewhat worse. He is being worked up outpatient however he has not had a CT yet, he is supposed to have a neurology consult in the next month. He has not had any kind of blood work yet. He denies fever or chills he has some nausea, he also has some vague chronic myalgias and not feeling well also for the past few months. He has gained 15 pounds in the past 5 to 6 months. He is admitting to increased stress. Past Medical History - Allergies and Home Meds Allergies/Adverse Reactions: Allergies Tetracyclines Allergy (Severe, Verified 01/26/20 14:20) joint pain Primary Care Physician: Codi Le,Out of [Primary Care Provider] - Past Medical History: None Smoking Status: Never smoker Review of Systems General: Denies: Fever Eyes: Denies: Visual changes - bilaterally ENT: Denies: Rhinorrhea, Sore throat Cardiovascular: Denies: Chest pain Respiratory: Denies: Dyspnea, Cough Gastrointestinal: Reports: Nausea. Denies: Vomiting Musculoskeletal: Reports: Myalgias Skin: Denies: Rash Neurological: Reports: Headache. Denies: Weakness, Parasthesia, Numbness Psych: Reports: Anxiety Endocrine: Denies: Polyuria, Polydipsia Allergy: Denies: Swelling of the mouth, Swelling of the tongue Physical Exam Vital Signs/Narrative: Vital Signs Temp Pulse Resp BP Pulse Ox 01/26/20 14:20 98.3 F 71 17 139/75 H 100 General: Well nourished, Well developed, No Acute Distress Head: Normocephalic Eyes: Perrl, EOMI ENT: Moist mucous membranes Neck: Supple Cardiovascular: Regular rate, Regular rhythm Respiratory: No distress Abdomen: Soft, Nontender Back: Nontender, Normal Inspection Extremities: Nontender Skin: Normal color Neurological: Alert, Oriented x3, Cranial nerves II-XII grossly intact, Normal Sensation Psychological: Normal affect Diagnostic/Tx/Re-eval - Medical Decision Making Patient has a normal ED work-up. He appears well he can follow-up with neurology as scheduled. Received IV fluid analgesia and improved in the ED. ED Disposition - Plan for ED Patient: Disposition: Home or Assisted Living Diagnosis: Headache Instructions: ED Headache Unspecified Referrals: [facility],Out of [Primary Care Provider] - 3-5 Days
[2020-01-26 15:12] LABS: Absolute Lymphocyte Count 2.26 X10^3/uL (0.83-4.51); Absolute Neutrophil Count 4.4 X10^3/uL (2.0-7.7); Basophil# 0.04 X10^3/uL; Basophil% 0.5 % (0-1); Eosinophil# 0.15 X10^3/uL; Hematocrit 45.8 % (40-54); Hemoglobin 15.7 g/dL (13.0-16.5); Lymphocyte # 2.26 X10^3/ul (4.0); Lymphocyte % 30.8 % (19-41); Mean Corp Hgb Conc 34.3 g/dL (32-36); Mean Corpuscular Hgb 29.8 pg (27.0-32.0); Mean Corpuscular Volume 87.1 fL (80-94); Mean Platelet Vol. 9.1 fl (6.2-12.0); Monocyte# 0.49 X10^3/uL; Monocyte% 6.7 % (0-10); NRBC Flagged by Analyzer 0 % (0-5); Neutrophil # 4.35 X10^3/uL (2.7-7.7); Neutrophil % 59.3 % (47-70); Platelet Count 249 K/mm3 (150-450); RBC Distribution Width CV 12.8 % (11.6-14.6); RBC Distribution Width SD 40.2 fl (35.1-43.9); Red Blood Count 5.26 M/mm3 (4.6-6.2); White Blood Count 7.3 K/mm3 (4.4-11.0)
[2020-01-26] MEDS: DiphenhydrAMINE 50 MG/ML Syringe 25 MG IV (15:14)
[2020-01-26] MEDS: Ketorolac 15 MG/ML Vial IV (15:16)
[2020-01-26 15:17] LABS: Erythrocyte Sedimentation Rate 5 mm/hr (0-15)
[2020-01-26] MEDS: 0.9% Normal Saline 1,000 ML 1000 ML IV (15:17)
[2020-01-26] MEDS: Metoclopramide 10 MG/2 ML Vial IV (15:18)
[2020-01-26 15:29] LABS: ALB/GLOB Ratio 1.2 RATIO (0.9-2.4); AST(SGOT) 20 U/L (15-37); Alanine Aminotransfer ALT/SGPT 40 U/L (16-61); Albumin, Serum 4.3 g/dL (3.2-5.0); Alkaline Phosphatase 69 U/L (45-117); Anion Gap 6 (5-15); BUN 13 mg/dL (7-18); BUN/Creat Ratio 13.8 RATIO (10-20); Calcium,Total 9.1 mg/dL (8.5-10.1); Chloride 105 mmol/L (98-107); Creatinine, Serum 0.94 mg/dL (0.70-1.30); EST Glomerular Filtration Rate 104 mL/min (>60); Est Glom Filt Rate - Afr Amer 126 mL/min (>60); Globulin 3.5 g/dL (2.2-4.2); Glucose 86 mg/dL (74-106); Potassium 3.9 mmol/L (3.5-5.1); Protein, Total 7.8 g/dL (6.4-8.2); Sodium Level 139 mmol/L (136-145)
[2020-01-26 17:37] VITALS: BP 110/64; PULSE 76; RESP 16; O2SAT 98
== END 2020-01-26 17:47 | disposition home or self-care (01) ==
PROVIDERS: Emergency Provider Emergency Medicine
DX: R51 Headache (principal)
CPT/HCPCS: 70450; 80053; 85025; 85652; 96361; 96374; 96375; 99283; J7030; A4216